=== PATIENT | male | born 1970 | race African-American/Black ===

== ENCOUNTER 2016-11-21 21:07 | Emergency (ER) | payer SELFPAY ==
[2016-11-21 21:35] VITALS: BP 142/83
[2016-11-21] MEDS ORDERED: METHYLPREDNISOLONE ACETATE 80 MG/ML VIAL IM ONE (22:05)
[2016-11-21] MEDS ORDERED: DEXAMETHASONE SOD PHOSPHATE 10 MG/ML VIAL IM ONE (22:05)
[2016-11-21] MEDS ORDERED: KETOROLAC TROMETHAMINE 60 MG/2 ML VIAL IM ONE ×2 (22:05→22:14)
[2016-11-21] MEDS ORDERED: METHYLPREDNISOLONE ACETATE 80 MG/ML VIAL ONE (22:15)
[2016-11-21] MEDS ORDERED: DEXAMETHASONE SOD PHOSPHATE 10 MG/ML VIAL ONE (22:15)
--- NOTE | 2016-11-21 22:18 | ERNOTE ---
Lower Extremity HPI - General Lower Extremities Pain: leg: right - swelling and tenderness Time Seen by Provider: 11/21/16 21:53 Source: patient Exam Limitations: no limitations - Immun/Allergies/Home Medications Immunizations: IMMUNIZATION HX Immunizations Up to Date No History of Influenza Vaccine No Hx Pneumococcal Vaccination No Allergies/Adverse Reactions: Allergies Allergy/AdvReac Type Severity Reaction Status Date / Time No Known Allergies Allergy Unverified 11/21/16 21:25 Home Medications: HOME MEDICATIONS NK [No Home Medication] 11/21/16 [Last Taken Unknown] - History of Present Illness Narrative: Pt has had right leg pain for a couple of weeks. He admits to previous DVT in that leg approx 10 years ago Occurred: last week Method of Injury: Reports: no apparent injury Other Injuries: Reports: none Review of Systems - Review of Systems Constitutional: Absent: recent illness EYE: Present: no symptoms reported ENT: Present: no symptoms reported Respiratory: Absent: shortness of breath Cardiology: Present: See HPI, edema. Absent: chest pain Genitourinary: Present: no symptoms reported Musculoskeletal: Present: back pain, joint pain - bilateral knees Skin: Present: no symptoms reported Neurological: Present: no symptoms reported Endocrine: Present: no symptoms reported Hematologic/Lymphatic: Present: no symptoms reported Psych: Present: no symptoms reported - Patient's Past Medical History Patient History - Medical: Chronic Pain Patient History - Cancer: No Hx of Cancer Patient History - Surgical Procedures: Noncontributory - Social History Living Situations: alone Smoking Status: Current every day smoker Have you smoked in the past 12 months: Yes Do you dip or chew tobacco: No Patient requests Smoking Cessation Consult: No Initiate information on Smoking Cessation: No Alcohol Use: none Drug Use: none Physical Exam - Physical Exam General Appearance: Present: wd/wn, alert, no apparent distress Respiratory: Present: no respiratory distress, no accessory muscle use Cardiovascular/Chest: Present: regular rate, rhythm, no murmur Peripheral Pulses: N=norm/S=strong/W=weak/B=bound/A=absent: Dorsalis-pedis (R): Weak Extremity Exam: Present: extremity edema - 3+ edema on the right. No palpable cord or specific evidence of DVT. Absent: calf tenderness Neurological Exam: Present: alert, oriented, normal mood/affect, no motor/ sensory deficits Skin Exam: Present: warm/dry, other - mild erythema in the right lower leg Lymphatic Exam: Present: no adenopathy ED Progress - Vital Signs Vital Signs: Vital Signs 11/21/16 21:26 Temperature 36.2 C L Pulse Rate 103 H Respiratory 18 Rate Blood Pressure 142/83 O2 Sat by Pulse 100 Oximetry - Progress/Reassessment Chief Complaint: Hip Pain/Injury Progress Note-Subjective: 11/21/16 22:11 Discussed the high possibility of DVT with his S & S and history. Pt refuses any DVT workup multiple times. Pt requests "cortisone shot " for his knees and states he needs to get to sleep so he can work again tomorrow. Departure Clinical Impression: Right leg swelling Osteoarthritis of knees, bilateral Qualifiers: Osteoarthritis type: primary Qualified Code(s): M17.0 - Bilateral primary osteoarthritis of knee - Departure Disposition: Home self-care Condition: Fair Instructions: Osteoarthritis Additional Instructions: Return to ER if you are willing to have further testing for a blood clot. Return immediately if you have any shortness of breath or chest pain
== END 2016-11-21 22:31 | disposition home or self-care (01) ==
LOC: ER 21:07
DX: M79.89 Other specified soft tissue disorders (principal); M17.0 Bilateral primary osteoarthritis of knee; F17.210 Nicotine dependence, cigarettes, uncomplicated